=== PATIENT | female | born 1955 ===

== ENCOUNTER 2018-03-18 10:30 | Emergency (ER) | payer OTHER ==
[2018-03-18 10:47] VITALS: RESP 18
--- NOTE | 2018-03-18 11:33 | ED PDOC ---
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 Patient describes the discomfort as a pressure like sensation. She denies similar symptoms in the past. Patient reports dizziness, but denies any fever, chills, chest pain, shortness of breath, increase gas/burping, bloody stool, nausea, vomiting, diarrhea, urinary symptoms, back pain, neck pain, headache, or any other complaints. PMD: Dr. 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: #[id number] Time/Duration: 1-3 hours Symptom Onset: Sudden Symptom Course: Unchanged Activities at Onset: Eating Context: Home Past Medical History - Provider Review Nursing Documentation Reviewed: Yes - Reproductive Menopause: Yes - Cardiac Hx Hypertension: Yes - Psychiatric Hx Substance Use: No Family/Social History - Physician Review Nursing Documentation Reviewed: Yes Family/Social History: No Known Family HX Smoking Status: Never Smoked Hx Alcohol Use: No Hx Substance Use: No Allergies/Home Meds Allergies/Adverse Reactions: Allergies No Known Allergies Allergy (Verified 03/18/18 10:47) Home Medications: Home Meds Medication Instructions Recorded Confirmed Bisoprolol [Zebeta] 5 mg PO DAILY 03/18/18 03/18/18 Valsartan [Diovan] 160 mg PO DAILY 03/18/18 03/18/18 Review of Systems - Physician Review All systems were reviewed & negative as marked: Yes - Review of Systems Constitutional: absent: Fevers, Other (Chills) Respiratory: absent: SOB Cardiovascular: absent: Chest Pain Gastrointestinal: Abdominal Pain. absent: Diarrhea, Nausea, Vomiting, Hematochezia Genitourinary Female: absent: Dysuria, Frequency, Hematuria, Vaginal Discharge Musculoskeletal: absent: Neck Pain Neurological: Dizziness. absent: Headache Physical Exam Vital Signs Reviewed: Yes Vital Signs Temp Pulse Resp BP Pulse Ox 03/18/18 10:45 98 F 88 18 145/78 100 Temperature: Afebrile Blood Pressure: Normal Pulse: Regular Respiratory Rate: Normal Appearance: Positive for: Well-Appearing, Non-Toxic, Comfortable Pain Distress: None Mental Status: Positive for: Alert and Oriented X 3 - Systems Exam Head: Present: Atraumatic, Normocephalic Pupils: Present: PERRL Extroacular Muscles: Present: EOMI Conjunctiva: Present: Normal Mouth: Present: Moist Mucous Membranes Neck: Present: Normal Range of Motion Respiratory/Chest: Present: Clear to Auscultation, Good Air Exchange. No: Respiratory Distress, Accessory Muscle Use, Wheezes, Rales, Rhonchi Cardiovascular: Present: Regular Rate and Rhythm, Normal S1, S2. No: Murmurs Abdomen: Present: Tenderness (to palpation of the epigastrium). No: Distention, Peritoneal Signs Back: Present: Normal Inspection Upper Extremity: Present: Normal Inspection. No: Cyanosis, Edema Lower Extremity: Present: Normal Inspection. No: Edema Neurological: Present: GCS=15, CN II-XII Intact, Speech Normal Skin: Present: Warm, Dry, Normal Color. No: Rashes Psychiatric: Present: Alert, Oriented x 3, Normal Insight, Normal Concentration Medical Decision Making ED Course and Treatment: 03/18/18 11:18 Impression: 62 year old female presents complaining of abdominal pressure-like discomfort that began 2 hours after eating cereal with milk. Differential Diagnosis included but are not limited to: Gastritis pancreatitis ACS Small bowel obstruction PUD Plan: -- CT Abdomen & Pelvis IV Contrast -- Labs -- EKG -- Chest X-ray -- Elixir, Maalox Plus, Pepcid -- Urine Culture -- Urinalysis -- Reassess and disposition Progress Notes: 03/18/18 13:45 On re-evaluation, patient feels better and is in no acute distress. I have discussed the results and plan with the patient, who expresses understanding. Patient in agreement with plan to be discharged home. Patient is stable for discharge. Patient was instructed to follow up with physician or return if symptoms worsen or new concerning symptoms arise. - Lab Interpretations I have reviewed the lab results: Yes - RAD Interpretation Narrative RAD Interpretations (Text): PROCEDURE: Chest X-ray Dictator : Farzaneh Concepcion MD Report Date : 03/18/2018 11:51:29 IMPRESSION: No active pulmonary disease. 03/18/18 13:46 PROCEDURE: CT Abdomen and Pelvis with contrast Dictator : Farzaneh Concepcion MD Report Date : 03/18/2018 13:26:42 IMPRESSION: No acute abdominal or pelvic abnormality. Constipation. No evidence for bowel obstruction. 1.4 x 1.5 cm indeterminate nodule in the left adrenal gland. A dedicated CT/MRI scan of the abdomen without and with intravenous contrast on a non emergent basis is recommended for definitive characterization. Mild hepatomegaly and fatty liver. Practice Performance Manager: Radiologist - EKG Interpretation EKG Interpretation (Text): EKG shows NSR at [address] elevation, no PT prolongation. Interpreted by me. Interpreted by ED Physician: Yes Type: 12 lead EKG - Scribe Statement The provider has reviewed the documentation as recorded by the Scribe Oj Troy Provider Scribe Attestation: All medical record entries made by the Scribe were at my direction and personally dictated by me. I have reviewed the chart and agree that the record accurately reflects my personal performance of the history, physical exam, medical decision making, and the department course for this patient. I have also personally directed, reviewed, and agree with the discharge instructions and disposition. Disposition/Present on Arrival - Present on Arrival Any Indicators Present on Arrival: No History of DVT/PE: No History of Uncontrolled Diabetes: No Urinary Catheter: No History of Decub. Ulcer: No History Surgical Site Infection Following: None - Disposition Have Diagnosis and Disposition been Completed?: Yes Diagnosis: Gastritis Disposition: HOME/ ROUTINE Disposition Time: 13:44 Patient Plan: Discharge Patient Problems: Current Active Problems Problem Status Onset Gastritis Acute Condition: IMPROVED Discharge Instructions (ExitCare): Gastritis (DC) Print Language: DANISH Additional Instructions: All medical record entries made by the Scribe were at my direction and personally dictated by me. I have reviewed the chart and agree that the record accurately reflects my personal performance of the history, physical exam, medical decision making, and the department course for this patient. I have also personally directed, reviewed, and agree with the discharge instructions and disposition. Prescriptions: Ondansetron ODT [Zofran ODT] 4 mg PO Q6H #4 odt Referrals: Pauline Haas MD [Non-Staff] - Follow up with primary Forms: [facility] (Vietnamese)
[2018-03-18] MEDS ORDERED: Atrop/Hyosc/Scopal/PB Elixir (120 ml) PO STA (11:34)
[2018-03-18] MEDS ORDERED: Alum-Mag Hydrox-Simethicone Susp (30 mL) PO STA (11:34)
--- NOTE | 2018-03-18 11:55 | RAD ---
Date of service: 03/18/2018 HISTORY: abdominal pain r/o air in the bowel COMPARISON: No prior. FINDINGS: LUNGS: The lungs are well inflated and clear. PLEURA: No pleural effusions or pneumothorax. CARDIOVASCULAR: The heart is normal in size. No aortic atherosclerotic calcification present. OSSEOUS STRUCTURES: Within normal limits for the patient's age. VISUALIZED UPPER ABDOMEN: Normal. OTHER FINDINGS: None. IMPRESSION: No active pulmonary disease.
[2018-03-18 12:14] LABS: BASO # 0.01 K/mm3 (0.0-2.0); BASO % 0.1 % (0.0-3.0); EOS % 0.4 % (1.5-5.0); GRAN # 7.29 (1.4-6.5); GRAN % 66.8 % (50.0-68.0); HEMOGLOBIN 13.2 g/dL (12.0-16.0); LYMPH # 3.1 (1.2-3.4); LYMPH % 28.2 % (22.0-35.0); MEAN CELL VOLUME 90.7 fl (80.0-105.0); MEAN CORPUSCULAR HEMOGLOBIN 29.1 pg (25.0-35.0); MEAN CORPUSCULAR HGB CONC 32.1 g/dl (31.0-37.0); MONO # 0.5 (0.1-0.6); MONO % 4.5 % (1.0-6.0); RBC 4.53 10^6/uL (3.5-6.1); RED CELL DISTRIBUTION WIDTH 14.1 % (11.5-14.5); WHITE BLOOD COUNT 10.9 10^3/uL (4.5-11.0)
[2018-03-18 12:16] LABS: PH,URINE 6.5 (4.7-8.0); URINE APPEARANCE CLEAR (CLEAR); URINE BILIRUBIN NEGATIVE (NEGATIVE); URINE BLOOD TRACE-INTACT (NEGATIVE); URINE COLOR YELLOW (YELLOW); URINE GLUCOSE (UA) NEGATIVE (NEGATIVE); URINE LEUKOCYTE ESTERASE TRACE Leu/uL (NEGATIVE); URINE PROTEIN NEGATIVE mg/dL (<30 mg/dL); URINE UROBILINOGEN 0.2 E.U./dL (<1 E.U./dL)
[2018-03-18 12:21] LABS: INR 1.01; PARTIAL THROMBOPLASTIN TIME 35.8 Seconds (25.1-36.5); PROTHROMBIN TIME 11.6 SECONDS (9.4-12.5); URINE BACTERIA MANY (NEG)
[2018-03-18 12:22] LABS: ALB/GLOB RATIO 1.3 (1.1-1.8); ALBUMIN 4.3 g/dL (3.0-4.8); ALT/SGPT 21 U/L (7-56); AST/SGOT 20 U/L (14-36); BLOOD UREA NITROGEN 13 mg/dL (7-21); CALCIUM 9.6 mg/dL (8.4-10.5); GFR NON-AFRICAN AMERICAN > 60; LIPASE 75 U/L (23-300)
[2018-03-18 12:33] LABS: TROPONIN I < 0.01 ng/mL
[2018-03-18] MEDS ORDERED: Iohexol 350 MG/100 ML VIAL ONE (12:37)
[2018-03-18 13:16] VITALS: BP 140/62; PULSE 86; TEMP 97.9; O2SAT 99
--- NOTE | 2018-03-18 13:30 | CT ---
Date of service: 03/18/2018 PROCEDURE: CT Abdomen and Pelvis with contrast HISTORY: Abdominal pain COMPARISON: None available. TECHNIQUE: CT scan of the abdomen and pelvis was performed after administration of intravenous contrast. Oral contrast was administered. Coronal and sagittal reformatted images were obtained. Contrast dose: 100 mL Omnipaque 350 Radiation dose: Total exam DLP = 429.01 mGy-cm. This CT exam was performed using one or more of the following dose reduction techniques: Automated exposure control, adjustment of the mA and/or kV according to patient size, and/or use of iterative reconstruction technique. FINDINGS: LOWER THORAX: There is dependent atelectasis in the right lung base. The visualize left lung is clear. LIVER: Mild hepatomegaly and fatty liver. No gross lesion or ductal dilatation. GALLBLADDER AND BILE DUCTS: Well distended. No calcified gallstones, wall thickening or pericholecystic fluid. PANCREAS: Normal in size with homogeneous enhancement. No gross lesion or ductal dilatation. SPLEEN: Normal in size and appearance. ADRENALS: The right adrenal gland is normal. There is a 1.4 x 1.5 cm nodule in the left adrenal gland. KIDNEYS AND URETERS: Normal in size with homogeneous enhancement. Subcentimeter simple cyst in the lower pole of the right kidney. No hydronephrosis. No solid mass. VASCULATURE: No aortic aneurysm. BOWEL: Evaluation of the bowel is limited in the absence of oral contrast. There is large amount of stool in the colon and fecal stasis in the rectum. The small bowel loops are normal in caliber. No bowel dilatation or obstruction. APPENDIX: Normal appendix. PERITONEUM: No free fluid. No free air. LYMPH NODES: No enlarged lymph nodes. BLADDER: Well distended and normal in appearance. REPRODUCTIVE: The uterus is normal in size. BONES: No acute fracture. Within normal limits for the patient's age. OTHER FINDINGS: None. IMPRESSION: No acute abdominal or pelvic abnormality. Constipation. No evidence for bowel obstruction. 1.4 x 1.5 cm indeterminate nodule in the left adrenal gland. A dedicated CT/MRI scan of the abdomen without and with intravenous contrast on a non emergent basis is recommended for definitive characterization. Mild hepatomegaly and fatty liver.
--- NOTE | 2018-03-18 18:03 | CARD ---
APPROVED REPORT Date of service: 03/18/2018 EKG Measurement Heart [id number] <Conclusion> Normal sinus rhythm ST abnormality, possible digitalis effect Abnormal ECG
--- NOTE | 2018-03-19 15:14 | CARD ---
APPROVED REPORT Date of service: 03/18/2018 EKG Measurement Heart [id number] IN [id number] <Conclusion> Normal sinus rhythm Normal ECG
== END 2018-03-18 14:16 | disposition home or self-care (01) ==
LOC: ED 10:30
DX: K29.70 Gastritis, unspecified, without bleeding (principal); I10 Essential (primary) hypertension; E78.00 Pure hypercholesterolemia, unspecified; R73.03 Prediabetes
CPT/HCPCS: 71045; 74177; 80053; 81001; 83690; 84484; 85025; 85610; 85730; 87086; 93005; 96374; 99284; Q9967